=== PATIENT | male | born 1965 | race Caucasian/White ===

== ENCOUNTER 2021-11-25 06:59 | Outpatient (CLI) | payer OTHER, SELFPAY ==
--- NOTE | ~2021-11-25 | US_ITS ---
EXAMINATION: [facility] aorta [facility] EX[facility] DATE: 11/25/2021 07:45 INDICATION: AAA Screening, Carotid Stenosis. TECHNIQUE: Multiple grayscale and Doppler images of the aorta were obtained (by a technologist who pe rformed the scan) and subsequently reviewed. There is no prior study for comparison. FINDINGS: The abdominal aorta measures 2.3 cm diameter proximally, tapers down to 1.6 cm distally. The right an d left common iliac arteries are also normal in size. IMPRESSION: Normal caliber abdominal aorta. Reviewed, dictated and finalized at location B. 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
--- NOTE | ~2021-11-25 | US_ITS ---
EXAMINATION: US carotid duplex BI DATE: 11/25/2021 07:46 INDICATION: Carotid stenosis. TECHNIQUE: Grayscale, color Doppler, and pulsed Doppler images of the cervical carotid arteries were obtained. The degree of vessel stenosis is placed in one of the following categories: normal, <50%, 5 0-69%, >=70% but less than near-occlusion, near-occlusion, or total occlusion. Note that percent sten osis relative to normal distal artery lumen diameter is indirectly measured from velocity measurement s as described by Ralph, et al. Radiology 2003; [id number]:[id number]. COMPARISON: None. FINDINGS: RIGHT: The right common carotid artery (CCA) peak systolic velocity (PSV) is 102 cm/s. The right internal ca rotid artery (ICA) PSV is 102 cm/s. The right ICA end-diastolic velocity (EDV) is 28 cm/s. The right ICA/CCA PSV ratio is 1.0. Grayscale and color Doppler images yield an estimate of <50% diameter reduc tion from plaque in the ICA. There is antegrade flow in the right vertebral artery. LEFT: The left CCA PSV is 111 cm/s. The left ICA PSV is 87 cm/s. The left ICA EDV is 23 cm/s. The left ICA/ CCA PSV ratio is 0.8. Grayscale and color Doppler images yield an estimate of <50% diameter reduction from plaque in the ICA. There is antegrade flow in the left vertebral artery. IMPRESSION: 1. <50% stenosis in the right internal carotid artery. 2. <50% stenosis in the left internal carotid artery. Reviewed, dictated and finalized at location A. 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
--- NOTE | ~2021-11-25 | CT_ITS ---
EXAMINATION:CT lung screening DATE: 11/25/2021 07:31 INDICATION: Personal history of nicotine dependence. Current smoker with 40 pack year history. TECHNIQUE: Computed tomography (CT) of the chest was performed without intravenous contrast. Automate d exposure control and iterative reconstruction technique were employed. The dose-length product (DLP ) was 364.78 mGy-cm. COMPARISON: None. FINDINGS: There is mild atelectasis in right upper lobe. There is mild emphysema. A calcified left ken ng nodule is consistent with old granulomatous disease. There is mild atelectasis in the inferior scott gs. No pleural effusion. The heart size is normal. There is subendocardial fat in lateral and inferio r ley of left ventricle, consistent with old infarcts. There are coronary artery calcifications. No pericardial effusion. There is diffuse hepatic steatosis. There are old healed right rib fractures. There is mild thoracic spondylosis. IMPRESSION: 1. Lung-RADS category 1: Negative. Continue annual screening with noncontrast low-dose chest CT in 12 months. Reviewed, dictated and finalized at location A. ET TRUCKER IMPRESSION: 1. Lung-RADS category 1: Negative. Continue annual screening with noncontrast l ow-dose chest CT in 12 months.
[2021-11-25 07:27] LABS: Basophils Absolute Auto 0.06 K/mm3 (0.00-0.10); Eosinophils Absolute Auto 0.18 K/mm3 (0.02-0.50); Eosinophils Percent Auto 2.9 % (1.0-6.0); Hematocrit 47.9 % (40.0-54.0); Hemoglobin 15.8 g/dL (14.0-18.0); Immature Granulocyte Absolute 0.03 K/mm3 (0.00-0.00); Immature Granulocyte Percent A 0.5 % (0.0-0.0); Immature Platelet Fraction Pct 2.9 % (1.0-7.0); Lymphocytes Absolute Auto 1.94 K/mm3 (1.10-4.50); Mean Corpuscular Hemoglobin 30.9 pg (27.0-31.0); Mean Corpuscular Volume 93.6 fL (78.0-102.0); Mean Platelet Volume 10.5 fl (8.7-11.0); Monocytes Absolute Auto 0.49 K/mm3 (0.10-0.90); Monocytes Percent Auto 7.8 % (2.0-11.0); Neutrophils Absolute Auto 3.6 K/mm3 (1.7-7.2); Neutrophils Percent Auto 56.8 % (50.0-70.0); Platelet Count Result 139 K/mm3 (150-420); Red Blood Count 5.12 M/mm3 (4.70-6.10); Red Cell Distribution Width 12.6 % (11.6-14.4); White Blood Count 6.3 K/mm3 (4.8-10.8)
[2021-11-25 11:09] LABS: Creatinine Urine 138.56 mg/dL (40-278); MALB Creatinine Ratio 9.3 mg/g (0-30); Microalbumin Urine Random < 13.0 mg/L
[2021-11-25 11:50] LABS: Alanine Aminotransferase 28 U/L (16-63); Albumin Level 3.6 g/dL (3.4-5.0); Alkaline Phosphatase 103 U/L (46-116); Anion Gap 12 mmol/L (8-16); Aspartate Amino Transferase 17 U/L (15-37); Bilirubin,Total 0.3 mg/dL (0.00-1.00); Blood Urea Nitrogen 8 mg/dL (7-18); Calcium 8.5 mg/dL (8.5-10.1); Carbon Dioxide 25 mmol/L (21-32); Chloride 106 mmol/L (98-108); Cholesterol 169 mg/dL (0-200); Creatine Kinase 174 U/L (39-308); Estimated Glomerular Filt Rate > 60; Free T3 2.17 pg/mL (2.18-3.98); Free T4 Free Thyroxine 0.67 ng/dL (0.76-1.46); Glucose 217 mg/dL (70-99); HDL Direct 40 mg/dL (40-60); LDL Cholesterol Calculated 89 mg/dL (<130); Osmolality Calculated 301 mOsm/kg (285-295); Potassium 4.2 mmol/L (3.5-5.1); Prostate Specific Antigen 1.3 ng/mL (< OR = 4.0); Sodium 143 mmol/L (136-145); Thyroid Stimulating Hormone 2.32 uIU/mL (0.36-3.74); Total Protein 6.7 g/dL (6.4-8.2); Triglycerides 201 mg/dL (0-150)
[2021-11-25 12:17] LABS: Hemoglobin A1C 8.7 % (<5.7)
[2021-11-25 16:44] LABS: Add Urine Microscopic? NO; Appearance Urine Clear (Clear); Bilirubin Urine Negative (Negative); Blood Urine Negative (Negative); Color Urine Light Yellow (Yellow); Glucose Urine UA Negative (Negative); Ketones Urine Negative (Negative); Leukocyte Esterase Ur Negative (Negative); Nitrate Urine Negative (Negative); Protein Urine Negative (Negative); Specific Grav Ur >= 1.030 (1.010-1.020); Urobilinogen Urine 0.2 mg/dL (0.2-1.0); pH Urine 5.5 (5.0-8.0)
[2021-11-30 09:50] LABS: Hepatitis C Signal to Cutoff 0.02 ratio (<1.00); Hepatitis C Virus Antibody Nonreactive (Nonreactive)
== END 2021-11-25 07:00 | disposition home or self-care (01) ==
LOC: CHSIMG 07:02
PROVIDERS: PCP Internal Medicine; Visit Provider Internal Medicine
DX: Z00.00 Encounter for general adult medical examination without abnormal findings (principal); E78.2 Mixed hyperlipidemia; I10 Essential (primary) hypertension; E11.65 Type 2 diabetes mellitus with hyperglycemia; Z12.5 Encounter for screening for malignant neoplasm of prostate; I73.9 Peripheral vascular disease, unspecified; I65.29 Occlusion and stenosis of unspecified carotid artery; J44.9 Chronic obstructive pulmonary disease, unspecified; Z12.2 Encounter for screening for malignant neoplasm of respiratory organs; Z87.891 Personal history of nicotine dependence
CPT/HCPCS: 36415; 71271; 76706; 80053; 80061; 81003; 82043; 82550; 83036; 84153; 84439; 84443; 84481; 85025; 85055; 93880; G0103

== ENCOUNTER 2021-11-26 08:29 | Outpatient (CLI) | payer OTHER, SELFPAY ==
--- NOTE | ~2021-11-26 | US_ITS ---
EXAMINATION: US arterial ankle brachial ind DATE: 11/26/2021 08:53 INDICATION: Peripheral arterial disease. Diabetes, heart disease, hyperlipidemia. Smoker. TECHNIQUE: Segmental pressures and plethysmographic and Doppler waveforms of the brachial and lower e xtremity arteries were obtained. COMPARISON: None. FINDINGS: Right and left brachial artery pressures of 141 mm Hg and 131 mm Hg, respectively, are concordant (no rmal difference <= 30 mmHg). The right ankle-brachial index (YINKA) is 1.28 at the dorsalis pedis artery and 0.96 at the posterior t ibial artery (normal >= 0.9-1.0). The right great toe-brachial index (TBI was not measured (normal >= 0.65). Arterial Doppler waveforms are triphasic at the dorsalis pedis artery and monophasic at the p osterior tibial artery. The left YINKA is 0.91. The left TBI was not measured. Arterial Doppler waveforms are triphasic. IMPRESSION: Normal YINKA bilaterally Reviewed, dictated and finalized at Location A. Reviewed, dictated and finalized at location A. FIELD DATA COLLECTOR IMPRESSION: Normal YINKA bilaterally
== END 2021-11-26 08:30 | disposition home or self-care (01) ==
LOC: CHSIMG 08:30
PROVIDERS: PCP Internal Medicine; Visit Provider Internal Medicine
DX: I73.9 Peripheral vascular disease, unspecified (principal)
CPT/HCPCS: 93922

== ENCOUNTER 2021-12-10 09:02 | Outpatient (CLI) | payer OTHER, SELFPAY | END 2021-12-10 09:03 | disposition home or self-care (01) | LOC: CHSCARD 09:04 | PROVIDERS: PCP Internal Medicine; Visit Provider Internal Medicine | DX: J44.9 Chronic obstructive pulmonary disease, unspecified (principal) | CPT/HCPCS: 94060; 94726; 94729 ==